=== PATIENT | male | born 1940 | race Caucasian/White ===

== ENCOUNTER 2017-02-22 13:47 | Inpatient (IN) | payer MEDICARE ==
[~2017-02-22] VITALS: Ht 180.3 cm; Wt 90.1 kg
[2017-02-22] MEDS ORDERED: SODIUM CHLORIDE FLUSH 10ML SYR IVF ONE (16:00)
[2017-02-22] MEDS: ONDANSETRON 2MG/ML, 2ML IVPush ONE ×2 (16:00→16:06)
[2017-02-22] MEDS: ASPIRIN 81 MG TABLET CHEW PO ONE ×2 (16:00→16:06)
[2017-02-22] MEDS ORDERED: MORPHINE SULFATE 4 MG/ML, 1ML IVPush PRN (16:00)
[2017-02-22] MEDS ORDERED: ASPIRIN 81 MG TABLET CHEW ONE (16:02)
[2017-02-22] MEDS ORDERED: ONDANSETRON 2MG/ML, 2ML ONE (16:02)
[2017-02-22] MEDS ORDERED: MORPHINE SULFATE 4 MG/ML, 1ML ONE (16:02)
[2017-02-22 16:19] LABS: BLOOD UREA NITROGEN 21 mg/dL (7-18)
[2017-02-22 16:24] LABS: ASPARTATE AMINO TRANSFERASE 18 U/L (15-37)
[2017-02-22 16:25] LABS: IS PT STATUS REG ER OR PRE ER? YES
[2017-02-22] MEDS ORDERED: MIDAZOLAM 1 MG/ML, 5ML ONE (16:54)
[2017-02-22] MEDS ORDERED: FENTANYL PF 100 MCG/2ML ONE (16:54)
[2017-02-22] MEDS ORDERED: BIVALIRUDIN 250 MG ONE ×2 (16:54→17:35)
[2017-02-22] MEDS ORDERED: TICAGRELOR 90 MG TABLET ONE (16:54)
[2017-02-22] MEDS ORDERED: LIDOCAINE 2%, 20ML ONE (16:55)
[2017-02-22] MEDS ORDERED: HEPARIN 1,000 UNITS/ML, 10ML ONE (16:55)
[2017-02-22] MEDS ORDERED: morphine SULFATE 10 MG/ML, 1ML IVPush PRN (17:30)
[2017-02-22] MEDS ORDERED: BISACODYL 10 MG SUPP PR PRN (17:30)
[2017-02-22] MEDS ORDERED: ASPIRIN 81 MG TABLET EC PO ONE (17:30)
[2017-02-22] MEDS ORDERED: ONDANSETRON 2MG/ML, 2ML IVPush PRN (17:30)
[2017-02-22] MEDS ORDERED: BISACODYL 5 MG EC TABLET PO PRN (17:30)
[2017-02-22] MEDS ORDERED: ACETAMINOPHEN 325 MG TABLET PO PRN (17:30)
[2017-02-22] MEDS: SODIUM CHLORIDE 0.9% 1,000 ML IV SCH ×2 (17:30→20:11)
[2017-02-22] MEDS ORDERED: ZOLPIDEM 5MG TABLET PO PRN (17:30)
[2017-02-22] MEDS ORDERED: BIVALIRUDIN 250 MG in DEXTROSE 5% 50 ML IV SCH (17:43)
[2017-02-22 18:25] VITALS: BP 108/66
[2017-02-22 18:39] LABS: IS PT STATUS REG ER OR PRE ER? NO
[2017-02-22] MEDS ORDERED: HEPARIN 5,000 UNITS/ML, 1ML IV SCH (19:00)
[2017-02-22] MEDS: TICAGRELOR 90 MG TABLET PO SCH (20:22)
[2017-02-22] MEDS: CARVEDILOL 3.125 MG TABLET PO SCH (22:10)
[2017-02-22] MEDS: ENALAPRIL 2.5MG TABLET PO SCH (22:10)
[2017-02-22] MEDS: ATORVASTATIN 80 MG TABLET PO SCH (22:11)
[2017-02-23] MEDS: SODIUM CHLORIDE 0.9% 1,000 ML IV SCH ×4 (00:10→09:43)
[2017-02-23 01:36] LABS: IS PT STATUS REG ER OR PRE ER? NO
[2017-02-23 04:00] VITALS: BP 101/62
[2017-02-23] MEDS: CARVEDILOL 3.125 MG TABLET PO SCH (06:14)
[2017-02-23 06:49] LABS: BLOOD UREA NITROGEN 21 mg/dL (7-18)
[2017-02-23 07:16] LABS: IS PT STATUS REG ER OR PRE ER? NO
[2017-02-23] MEDS: ENALAPRIL 2.5MG TABLET PO SCH ×2 (08:25→21:05)
[2017-02-23] MEDS: TICAGRELOR 90 MG TABLET PO SCH ×2 (08:25→21:05)
[2017-02-23] MEDS: ASPIRIN 81 MG TABLET EC PO SCH (08:25)
[2017-02-23] MEDS ORDERED: ASPIRIN 81 MG TABLET EC PO SCH (09:00)
[2017-02-23] MEDS: CARVEDILOL 6.25 MG TABLET PO SCH (17:49)
[2017-02-23 19:30] VITALS: BP 98/58
[2017-02-23] MEDS: ATORVASTATIN 80 MG TABLET PO SCH (21:05)
[2017-02-24 02:00] VITALS: BP 98/65
[2017-02-24 05:06] LABS: BLOOD UREA NITROGEN 17 mg/dL (7-18)
[2017-02-24 05:18] VITALS: BP 107/69
[2017-02-24] MEDS: CARVEDILOL 6.25 MG TABLET PO SCH (05:24)
[2017-02-24 06:42] VITALS: BP 104/64
[2017-02-24] MEDS ORDERED: PNEUMOCOCCAL 23 VACCINE IM-VACC ONE (07:00)
[2017-02-24] MEDS: ENALAPRIL 2.5MG TABLET PO SCH (10:08)
[2017-02-24] MEDS: ASPIRIN 81 MG TABLET EC PO SCH (10:08)
[2017-02-24] MEDS: TICAGRELOR 90 MG TABLET PO SCH (11:55)
[2017-02-24] MEDS ORDERED: CARV6.2512 PO (12:46)
[2017-02-24] MEDS ORDERED: ENAL2.5T PO (12:46)
[2017-02-24] MEDS ORDERED: ASPI-621 PO (12:46)
[2017-02-24] MEDS ORDERED: ATOR80TA75 PO (12:46)
[2017-02-24] MEDS ORDERED: TICA90TA PO (12:46)
[2017-02-24 14:26] VITALS: BP 109/64
[2017-02-26 11:06] LABS: HGB A1C 5.8 %Hb (.)
== END 2017-02-24 17:28 | disposition home or self-care (01) | DRG 246 ==
LOC: ED 15:55 → CCU 17:06 → 5SO 02-24 05:19
PROVIDERS: ADMIT Internal Medicine Cardiovascular Disease; ATTEND Internal Medicine Cardiovascular Disease
PROC: 027034Z Dilation of Coronary Artery, One Artery with Drug-eluting Intraluminal Device, Percutaneous Approach (ICD-10-PCS; principal; 2017-02-22)
PROC: 4A023N7 Measurement of Cardiac Sampling and Pressure, Left Heart, Percutaneous Approach (ICD-10-PCS; 2017-02-22)
PROC: B2111ZZ Fluoroscopy of Multiple Coronary Arteries using Low Osmolar Contrast (ICD-10-PCS; 2017-02-22)
DX: I21.19 ST elevation (STEMI) myocardial infarction involving other coronary artery of inferior wall (principal); I50.31 Acute diastolic (congestive) heart failure; I47.2 Ventricular tachycardia; I11.0 Hypertensive heart disease with heart failure; E78.5 Hyperlipidemia, unspecified; E55.9 Vitamin D deficiency, unspecified; F41.9 Anxiety disorder, unspecified; G47.30 Sleep apnea, unspecified; I25.10 Atherosclerotic heart disease of native coronary artery without angina pectoris; I25.82 Chronic total occlusion of coronary artery; I27.2 Other secondary pulmonary hypertension; I34.0 Nonrheumatic mitral (valve) insufficiency; I49.3 Ventricular premature depolarization; K74.60 Unspecified cirrhosis of liver; N40.0 Benign prostatic hyperplasia without lower urinary tract symptoms; Z79.82 Long term (current) use of aspirin; I25.2 Old myocardial infarction; Z82.49 Family history of ischemic heart disease and other diseases of the circulatory system; Z87.442 Personal history of urinary calculi; Z87.891 Personal history of nicotine dependence; Z90.49 Acquired absence of other specified parts of digestive tract
CPT/HCPCS: 36415; 71010; 80048; 80053; 80061; 82040; 83036; 83605; 84484; 85025; 85379; 87081; 90732; 93005; 93306; 93454; 99156; 99157; 99285; C1760; C1894; J0583; J1644; J2250; J2405; J3010; J3490; C1725; C1769; C1874; C1887; J7030; Q9967

== ENCOUNTER 2018-02-21 20:57 | Emergency (ER) | payer MEDICARE ==
[~2018-02-21] VITALS: Ht 180.3 cm; Wt 86.0 kg
[~2018-02-21 20:57] MED LIST: ASPI-621 PO; ATOR-2 PO; CARV6.2512 PO; ENAL2.5T PO; TICA90TA PO
[2018-02-21 21:05] VITALS: BP 150/88
[2018-02-21] MEDS ORDERED: LIDOCAINE-MPF 1%, 2ML ONE (21:57)
[2018-02-21] MEDS ORDERED: LIDOCAINE 1%, 10ML INFIL ONE (22:00)
== END 2018-02-21 23:03 | disposition home or self-care (01) ==
LOC: ED 22:50
DX: S01.512A Laceration without foreign body of oral cavity, initial encounter (principal); X58.XXXA Exposure to other specified factors, initial encounter; Y93.89 Activity, other specified; Y99.8 Other external cause status; Y92.89 Other specified places as the place of occurrence of the external cause; I25.2 Old myocardial infarction
CPT/HCPCS: 99281

== ENCOUNTER → 2018-03-21 | Outpatient (CLI) | payer MEDICARE | END | disposition home or self-care (01) | LOC: CFH 09:55 | PROVIDERS: ATTEND Internal Medicine Cardiovascular Disease | DX: I34.0 Nonrheumatic mitral (valve) insufficiency (principal); I25.10 Atherosclerotic heart disease of native coronary artery without angina pectoris; I25.2 Old myocardial infarction | CPT/HCPCS: 93306 ==

== ENCOUNTER → 2019-03-02 | Outpatient (CLI) | payer MEDICARE ==
[~2019-03-02] MED LIST changes: -ASPI-621 PO; +ASPI81TA45 PO
== END | disposition home or self-care (01) ==
LOC: CVU 07:32
PROVIDERS: ATTEND Internal Medicine Cardiovascular Disease
DX: I34.0 Nonrheumatic mitral (valve) insufficiency (principal); I25.10 Atherosclerotic heart disease of native coronary artery without angina pectoris
CPT/HCPCS: 93306

== ENCOUNTER → 2019-03-08 | Outpatient (CLI) | payer MEDICARE | END | disposition home or self-care (01) | LOC: CFH 08:02 | PROVIDERS: ATTEND Internal Medicine Cardiovascular Disease | DX: I21.19 ST elevation (STEMI) myocardial infarction involving other coronary artery of inferior wall (principal); I25.10 Atherosclerotic heart disease of native coronary artery without angina pectoris | CPT/HCPCS: 78452; 93017; A9502 ==

== ENCOUNTER → 2020-12-18 | Outpatient (CLI) | payer MEDICARE ==
[~2020-12-18] MED LIST changes: -ENAL2.5T PO; +ENAL2.5T8 PO
== END | disposition home or self-care (01) ==
LOC: CFH 10:52
PROVIDERS: ATTEND Internal Medicine Cardiovascular Disease
DX: I08.8 Other rheumatic multiple valve diseases (principal); I25.10 Atherosclerotic heart disease of native coronary artery without angina pectoris; I21.29 ST elevation (STEMI) myocardial infarction involving other sites; I25.89 Other forms of chronic ischemic heart disease
CPT/HCPCS: 78452; 93017; 93306; A9502